=== PATIENT | female | born 1970 | race Caucasian/White ===

== ENCOUNTER 2020-08-06 09:07 | Outpatient (REF) | payer MEDICAID, SELFPAY ==
[2020-08-06 14:07] LABS: Abs Immature Grans 0.03 10^3/uL (0.0-0.06); Absolute Basophil Count 0.02 10^3/uL (0.0-0.2); Absolute Eosinophil Count 0.14 10^3/uL (0.0-0.7); Absolute Lymphocyte Count 2.34 10^3/uL (1.2-3.4); Absolute Monocyte Count 0.53 10^3/uL (0.1-0.8); Absolute Neutrophil Count 6.35 10^3/uL (1.2-6.7); Basophils % 0.2; Eosinophils % 1.5; HCT 41.2 % (36.0-46.0); HGB 13.7 g/dL (11.2-15.7); Immature Grans % 0.3; Lymphocytes % 24.9; MCH 31.8 pg (27.0-33.0); MCHC 33.3 % (32.0-36.0); MCV 95.6 fL (80-95); MPV 10.4 fL (8.0-11.0); Monocytes % 5.6; Neutrophils % 67.5; Nucleated RBC 0 %; Platelet Count 363 10^3/uL (130-400); RBC 4.31 10^6/uL (3.93-5.22); RDW 12.7 % (11.7-14.6); RDW-SD 44.9 fL; WBC 9.41 10^3/uL (4.4-10.8)
[2020-08-06 15:00] LABS: ALT 51 U/L (14-59); AST 22 U/L (15-37); Albumin 3.5 g/dL (3.4-5.0); Alkaline Phosphatase 93 U/L (46-116); Anion Gap 9.7 mmol/L (3-11); BUN 18 mg/dL (7-18); Bilirubin, Total 0.4 mg/dL (0.2-1.0); CO2 26.3 mmol/L (21.0-32.0); CREATININE 0.6 mg/dL (0.55-1.02); Calcium 9.2 mg/dL (8.5-10.1); Calculated LDL 184 mg/dL (<100); Chloride 106 mmol/L (98-107); Cholesterol 258 mg/dL (<200); Glucose 104 mg/dL (74-106); HDL Cholesterol 51 mg/dL (40-60); Potassium 4.2 mmol/L (3.5-5.1); Sodium 142 mmol/L (136-145); TSH 1.35 uIU/mL (0.36-3.74); Total Protein 6.8 g/dL (6.4-8.2); Triglyceride 115 mg/dL (<150)
[2020-08-06 16:46] LABS: Hemoglobin A1C 6.4 % (<5.7)
[2020-08-09 04:48] LABS: Vitamin D 25 Total 17.3 ng/mL (30-100)
== END 2020-08-06 09:08 | disposition home or self-care (01) ==
LOC: NCHCN 09:07
PROVIDERS: PCP Family Medicine; Visit Provider Registered Nurse
DX: M79.89 Other specified soft tissue disorders (principal); R22.41 Localized swelling, mass and lump, right lower limb; R22.42 Localized swelling, mass and lump, left lower limb; R06.02 Shortness of breath; R53.83 Other fatigue; E66.01 Morbid (severe) obesity due to excess calories; E55.9 Vitamin D deficiency, unspecified; R73.09 Other abnormal glucose
CPT/HCPCS: 80053; 80061; 82306; 83036; 84443; 85025

== ENCOUNTER 2021-01-24 20:08 | Emergency (ER) | payer MEDICAID, SELFPAY ==
[2021-01-24] VITALS (20 sets, daily range): BP systolic 131–187; BP diastolic 81–148; PULSE 67–85; RESP 18–28; TEMP 36.5; O2SAT 93–97
--- NOTE | 2021-01-24 20:33 | W.ED.GENAD ---
Discharge Plan Disposition Patient Disposition: HOME Condition: Stable Discharge Details Clinical Impression: COVID-19 Primary Care Provider: Indu Glover ED Provider: Veronica Sandoval Home Meds and New Rx's Prescriptions: No Action No Known Home Meds RF: 0 Discharge Instructions Instructions: COVID-19 (Coronavirus Disease 2019) (ED) Additional Instructions: Your chest x-ray, EKG and labs are all reassuring here today. No evidence to suggest blood clot in your lungs, emergent cardiac pathology, pneumonia. Please continue to encourage hydration. You may use Tylenol and ibuprofen as needed for discomfort. Please reach out tomorrow to schedule outpatient antibody infusion. You may call your primary care or hospital at [phone]. If you develop increased shortness of breath, difficulty breathing or other new/worsening symptoms please seek care urgently once again. Pleae check your O2 as we discussed and return if O2 is less than 90%. Referrals: Indu Glover [Primary Care Provider] - Medical Decision Making Patient is a pleasant 51-year-old female presents today with chief complaint of hypoxia in setting of COVID-19. She reports that she became symptomatic and was diagnosed Covid +3 days ago. She states that she is fully vaccinated, likely contracted this appears to me that her works. States that her symptoms have included slight cough, sore throat, loss of sense of smell. Yesterday she began developing some chest pressure. No shortness of breath but states that she feels like I have to take a deep breath. Denies any abdominal upset, no abdominal discomfort or diarrhea. Was given a home oxygen probe by her primary care. States this this has been reading in the mid 80s today. She denies any increased shortness of breath. Has had continued chest pressure. States that she would not of come in if the oxygen reading had not been low. On exam, patient appears nontoxic. Patient is overweight. Lungs are clear, normal cardiac exam. No lower extremity edema. Oxygen 95 to 97% on room air. Patient did not exhibit any dyspnea when walking in. She is hypertensive at this visit she does have a history of hypertension and feeling very anxious. Patient I discussed diagnostic and treatment options. She has had some chest pressure, I do feel that EKG and troponin would be appropriate. As it began yesterday, I believe 1 - test to be sufficient. Will obtain a portable chest x-ray. She is Covid positive, also considered potential PE and will obtain D-dimer. Labs reviewed. No leukocytosis. Stable H&H. D-dimer within normal limits. CMP without significant abnormality. ALT is slightly elevated at 78, she has been elevated historically. Her troponin within normal limits. FINDINGS: Lungs: Evaluation of the lungs is limited by underinflation. Within this limitation, no pulmonary infiltrates or consolidations are identified. Pleural spaces: No significant pleural effusions. No pneumothorax. Heart/Mediastinum: Cardiomediastinal silhouette is unremarkable. Bones/joints: No acute osseous abnormalities. IMPRESSION: No acute findings, within limitation of low lung volumes. Impression. Discussed findings with the patient. We did discuss how to use the pulse oximeter more appropriately. I am questioning if she may have been using this and not giving it time to read. She has already discussed antibody infusion with her primary care and was advised to been contacted today. Advised if she does not hear from them in the morning she should reach out as likely they will be doing this in the next 24 to 48 hours. Return precautions were discussed. She will continue to quarantine. All of her questions and concerns were addressed and she is in agreement this plan. HPI General Mode of arrival: ambulatory. Date/Time Provider Initiated Documentation: 01/24/21 20:14. Limitations to Documentation: no limitations. Information obtained by: patient and RN notes reviewed. History of Present Illness 51 year old F presents to the emergency department with the chief complaint of chest pressure, low O2 at hoome, described as moderate, with intensity rated at 5. Quality is described as other (pressure), and is localized to the chest. Patient reports no radiation. Patient started experiencing this day(s) (covid sxs x 3 days, CP started yesterday) and it has been constant. No relieving factors improve symptom(s), No exacerbating factors reported . Patient notes chest pain, cough, fever/chills (t max 99.7) and shortness of breath (feels that she needs to take a deep breath); denies headaches, loss of appetite, nausea/vomiting and rash. Patient did receive the following treatments prior to arrival, none Related Data Home Medications Medication Instructions Recorded Confirmed Unknown [No Known Home Meds] 01/24/21 01/24/21 Allergies Allergy/AdvReac Type Severity Reaction Status Date / Time No Known Drug Allergies Allergy Unverified 01/24/21 20:24 General Stated Complaint: RespSymp LUPIS: 2 Review of Systems Constitutional Constitutional: Reports as per HPI, Denies chills, Reports fatigue, Reports fever(s), Denies headache(s), Reports lethargy and Reports malaise ENT Ears, Nose, Mouth, and Throat: Denies dizziness, Denies headache(s), Denies nasal congestion, Reports sore throat and Reports other (loss of sense of taste) Cardiovascular Cardiovascular: Reports as per HPI, Reports chest pain (pressure, started yesterday), Reports chest pain at rest and Reports dyspnea Respiratory Respiratory: Reports as per HPI, Denies chest congestion, Reports cough, Denies pain on inspiration, Denies pain with cough, Reports dyspnea and Denies wheezing Gastrointestinal Gastrointestinal: Reports as per HPI, Denies abdominal pain, Reports diarrhea (one loose BM this afternoon) and Denies vomiting Musculoskeletal Musculoskeletal: Reports as per HPI and Reports myalgias Integumentary/Breasts Skin/Breast: Reports as per HPI and Denies rash Neurologic Neurologic: Reports as per HPI, Denies dizziness and Denies headache(s) Endocrine Endocrine: Reports fatigue Allergic/Immunologic Allergic/Immunologic: Denies wheezing [facility] Active Problem List (Updated 01/24/21 @ 22:20 by SENIA Hendrix) COVID-19 (Acute) Medical History (Updated 01/24/21 @ 22:20 by SENIA Hendrix) Hypertension Pre-diabetes Social History Smoking/Tobacco Use Status: Never Smoking risk assessment performed?: Yes Alcohol Intake: current Alcohol Intake frequency: a few times a week Alcohol type: hard liquor Drug use: Occasionally Substance use type: marijuana Do you feel safe at home: Yes Do you feel safe in your relationship?: Yes Exam Const General: cooperative, healthy appearing, comfortable, no acute distress and well developed Nutritional Appearance: well nourished and obese Orientation: alert, awake and oriented x3 HENMT Head: normal to inspection Ears: hearing grossly normal bilaterally Mouth: moist mucous membranes Chest Chest: normal inspection of the chest, normal palpation of entire chest wall and no crepitus Resp Effort & Inspection: normal respiratory effort, able to speak in complete sentences and no respiratory distress Auscultation: clear to auscultation bilaterally, no rales, no rhonchi and no wheezes Cardio Rate: regular rate Rhythm: regular rhythm Heart Sounds: S1 normal and S2 normal GI Inspection: normal to inspection, no edema and non-distended Palpation: soft, no hepatosplenomegaly, not firm, no guarding, not rigid and nontender Auscultation: normal bowel sounds Skin General skin exam: no rashes or lesions noted Trauma: no lacerations or abrasions Neuro General: patient alert, patient awake and patient oriented x3 Cognition: normal cognition Speech: speech normal Gait: normal gait Extrem General: normal to inspection, capillary refill normal, no pedal edema, no calf tenderness and normal gait Psych Appearance: grossly normal and well kempt Mental Status: mental status grossly normal Speech and Movement: speech and movement normal Course Vital Signs Vital signs: Vital Signs Temperature 36.5 C 01/24/21 20:17 Pulse 81 01/24/21 20:17 Respiratory Rate 18 01/24/21 20:17 Blood Pressure 187/90 H 01/24/21 20:17 Pulse Oximetry 95 01/24/21 20:17 Temperature 36.5 C 01/24/21 20:17 Temperature Source Oral 01/24/21 20:17 Pulse 81 01/24/21 20:17 Respiratory Rate 18 01/24/21 20:17 Respiratory Effort Non-Labored 01/24/21 20:31 Respiratory Depth Normal 01/24/21 20:31 Blood Pressure 187/90 H 01/24/21 20:17 Blood Pressure Position Sitting 01/24/21 20:17 Pulse Oximetry 95 01/24/21 20:17 Oxygen Delivery Method Room Air 01/24/21 20:17 Oxygen Flow Rate 0 01/24/21 20:17 Pain Level 6 01/24/21 20:17
--- NOTE | 2021-01-24 20:45 | RT.EKG_ITS ---
APPROVED REPORT Exam: Resting ECG Reason for Exam: chest pressure Patient Location: E HR:68 bpm ECG Measurements Heart Rate 68 AXIS MD 171 P 43 QRSd 105 QRS 0 QT 398 T -5 QTc 423 Conclusion Sinus rhythm...normal P axis, V-rate 60- 99 Low voltage, precordial leads...precordial leads <1.0mV
--- NOTE | 2021-01-24 20:45 | DI.RAD_ITS ---
Exam(s) XR PORTABLE CHEST AP EXAM: XR PORTABLE CHEST AP CLINICAL HISTORY: chest pressure TECHNIQUE: 2D digital imaging was performed of the chest. One image was obtained. An AP view was ob tained. COMPARISON: No exams were available for comparison FINDINGS: MEDIASTINUM: Normal. HEART: Normal. PULMONARY VASCULATURE: Normal. LUNGS: Clear. PLEURAL SPACE: No pleural effusion or pneumothorax. BONE:Within normal limits for the patient's age. OTHER FINDINGS:Normal. IMPRESSION: No acute pulmonary findings. DATA REPOSITORY: RADIATION DOSE DELIVERED:
--- NOTE | 2021-01-24 21:35 | DI.VRAD_ITS ---
PROCEDURE INFORMATION: Exam: XR Chest Exam date and time: 01/24/2021 8:54 PM Age: 51 years old Clinical indication: Pain; Chest pressure TECHNIQUE: Imaging protocol: XR of the chest. Views: 1 view. COMPARISON: No relevant prior studies available. FINDINGS: Lungs: Evaluation of the lungs is limited by underinflation. Within this limitation, no pulmonary infiltrates or consolidations are identified. Pleural spaces: No significant pleural effusions. No pneumothorax. Heart/Mediastinum: Cardiomediastinal silhouette is unremarkable. Bones/joints: No acute osseous abnormalities. IMPRESSION: No acute findings, within limitation of low lung volumes. Impression. Dictated and Authenticated by: Schuyler Herrera MD. Ordering:TAIWO Martin MD
[2021-01-24 21:42] LABS: Abs Immature Grans 0.02 10^3/uL (0.0-0.06); Absolute Basophil Count 0.01 10^3/uL (0.0-0.2); Absolute Eosinophil Count 0.13 10^3/uL (0.0-0.7); Absolute Lymphocyte Count 2.13 10^3/uL (1.2-3.4); Absolute Monocyte Count 0.55 10^3/uL (0.1-0.8); Absolute Neutrophil Count 3.57 10^3/uL (1.2-6.7); Basophils % 0.2; HCT 41.1 % (36.0-46.0); HGB 13.7 g/dL (11.2-15.7); Immature Grans % 0.3; Lymphocytes % 33.2; MCH 32.3 pg (27.0-33.0); MCHC 33.3 % (32.0-36.0); MCV 96.9 fL (80-95); Monocytes % 8.6; Neutrophils % 55.7; Nucleated RBC 0 %; Platelet Count 310 10^3/uL (130-400); RBC 4.24 10^6/uL (3.93-5.22); RDW 12.7 % (11.7-14.6); RDW-SD 45.4 fL; WBC 6.41 10^3/uL (4.4-10.8)
[2021-01-24 22:02] LABS: ALT 78 U/L (14-59); AST 37 U/L (15-37); Albumin 3.4 g/dL (3.4-5.0); Alkaline Phosphatase 89 U/L (46-116); Anion Gap 9.3 mmol/L (3-11); BUN 16 mg/dL (7-18); Bilirubin, Total 0.2 mg/dL (0.2-1.0); CO2 25.7 mmol/L (21.0-32.0); Calcium 8.4 mg/dL (8.5-10.1); Chloride 106 mmol/L (98-107); Estimated GFR 58.45 (mL/min/1.73m2); Glucose 162 mg/dL (74-106); Magnesium 1.9 mg/dL (1.8-2.4); Potassium 3.5 mmol/L (3.5-5.1); Sodium 141 mmol/L (136-145)
[2021-01-24 22:05] LABS: Troponin I < 0.05 ng/mL (<0.06)
[2021-01-24 22:13] LABS: D-Dimer 464 ng/mlFEU (<500)
== END 2021-01-24 22:25 | disposition home or self-care (01) ==
PROVIDERS: Emergency Provider Physician Assistant; PCP Family Medicine
DX: U07.1 COVID-19 (principal); R07.89 Other chest pain
CPT/HCPCS: 36415; 80053; 93005; 99284; 71045; 83735; 84484; 85025; 85379; 93010

== ENCOUNTER 2021-01-26 01:22 | Outpatient (CLI) | payer MEDICAID, SELFPAY ==
[2021-01-26 13:25] VITALS: BP 131/85; PULSE 73; TEMP 36.6; O2SAT 95
[2021-01-26 13:55] VITALS: BP 133/86; PULSE 66; TEMP 37.3; O2SAT 95
[2021-01-26 14:20] VITALS: BP 125/85; PULSE 67; TEMP 36.9; O2SAT 97
[2021-01-26 14:50] VITALS: BP 129/82; PULSE 68; TEMP 36.9; O2SAT 95
[2021-01-26 15:20] VITALS: BP 131/84; PULSE 66; TEMP 37.3; O2SAT 96
== END 2021-01-26 01:23 | disposition home or self-care (01) ==
PROVIDERS: PCP Family Medicine; Visit Provider Family Medicine
DX: U07.1 COVID-19 (principal)
CPT/HCPCS: 96365

== ENCOUNTER 2021-03-10 08:49 | Outpatient (REF) | payer MEDICAID, SELFPAY ==
--- NOTE | 2021-03-10 08:20 | PAPFT_PTH ---
PATIENT: Patricia Hanley LOC: [facility]#:[id number] AGE/SX: 51/F ROOM: RE03/10/[address]: Norma Kennedy : 1970 BED: DIS: 03/10/2021 SPEC #: [id number] RECD: 03/10/21 17:35 STATUS: ABENA REQ #: [id number] LUI: 03/10/21 08:[address]: Norma Kennedy DEPT: [facility] Cytology RECD BY: Vicki Whitfield ENTERED: 03/10/21 17:35 SP TYPE: PAPFT OTHR DR: Indu Glover Tissues: 1 - CX/ENDOCX FOR PAP SMEARS Procedures: PAP THIN PREP/UVM Screening HPV DNA PROBE Comments: [id number]
== END 2021-03-10 08:50 | disposition home or self-care (01) ==
LOC: NCHCN 08:49
PROVIDERS: PCP Family Medicine; Visit Provider Registered Nurse
DX: Z12.4 Encounter for screening for malignant neoplasm of cervix (principal); Z11.51 Encounter for screening for human papillomavirus (HPV)
CPT/HCPCS: 88142; 87624

== ENCOUNTER 2021-07-04 18:42 | Outpatient (REF) | payer MEDICAID, SELFPAY | END 2021-07-04 18:43 | disposition home or self-care (01) | LOC: NCHCN 18:42 | PROVIDERS: PCP Family Medicine; Visit Provider Internal Medicine | DX: R30.0 Dysuria (principal) | CPT/HCPCS: 87086 ==

== ENCOUNTER 2021-10-19 14:25 | Outpatient (REF) | payer MEDICAID, SELFPAY ==
[2021-10-20 10:41] LABS: HGB 13.9 g/dL (11.2-15.7); MCH 32.5 pg (27.0-33.0); MCHC 33.9 % (32.0-36.0); MCV 96 fL (80-95); Platelet Count 383 10^3/uL (130-400); RBC 4.28 10^6/uL (3.93-5.22); RDW 12.6 % (11.7-14.6); RDW-SD 44.5 fL; WBC 12.23 10^3/uL (4.4-10.8)
[2021-10-20 11:15] LABS: ALT 91 U/L (14-59); AST 46 U/L (15-37); Albumin 3.6 g/dL (3.4-5.0); Alkaline Phosphatase 81 U/L (46-116); Anion Gap 8.9 mmol/L (3-11); BUN 12 mg/dL (7-18); Bilirubin, Total 0.5 mg/dL (0.2-1.0); CO2 26.1 mmol/L (21.0-32.0); CREATININE 0.9 mg/dL (0.55-1.02); Calcium 8.8 mg/dL (8.5-10.1); Chloride 105 mmol/L (98-107); Glucose 128 mg/dL (74-106); Potassium 3.6 mmol/L (3.5-5.1); Sodium 140 mmol/L (136-145); Total Protein 7.4 g/dL (6.4-8.2)
== END 2021-10-19 14:26 | disposition home or self-care (01) ==
LOC: NCHCN 14:25
PROVIDERS: PCP Family Medicine; Visit Provider Family Medicine
DX: I10 Essential (primary) hypertension (principal); R53.83 Other fatigue; R06.09 Other forms of dyspnea; R39.9 Unspecified symptoms and signs involving the genitourinary system
CPT/HCPCS: 80053; 85027; 87086

== ENCOUNTER 2021-10-26 14:36 | Outpatient (REF) | payer MEDICAID, SELFPAY ==
[2021-10-26 21:24] LABS: Bilirubin Negative (Negative); Blood Negative (Negative); Clarity Clear (Clear); Glucose Negative (Negative); Ketones Negative (Negative); Leukocyte Esterase Negative (Negative); Nitrite Negative (Negative); Urobilinogen 0.2 EU/dL (Up TO 0.2)
== END 2021-10-26 14:37 | disposition home or self-care (01) ==
LOC: NCHCN 14:36
PROVIDERS: PCP Family Medicine; Visit Provider Family Medicine
DX: R31.0 Gross hematuria (principal)
CPT/HCPCS: 81003

== ENCOUNTER 2022-02-16 15:13 | Outpatient (REF) | payer MEDICAID, SELFPAY ==
[2022-02-16 15:59] LABS: Bilirubin Negative (Negative); Blood Trace-intact (Negative); Clarity Clear (Clear); Glucose Negative (Negative); Ketones Negative (Negative); Leukocyte Esterase Negative (Negative); Nitrite Negative (Negative); Specific Gravity 1.025 (1.005-1.025); Urobilinogen 0.2 EU/dL (Up TO 0.2); pH 6.5 (5-8)
[2022-02-16 16:10] LABS: Bacteria Negative HPF (Negative); C & S Indicated? No; Casts Negative LPF (Negative); Crystals Negative HPF (Negative); Epithelial Cells Few HPF (Negative); Mucus Negative (Negative); RBC 0-2 HPF (0-2); WBC Negative HPF (0-5)
== END 2022-02-16 15:14 | disposition home or self-care (01) ==
LOC: LBN 15:13
PROVIDERS: PCP Family Medicine; Visit Provider Nurse Practitioner Gerontology
DX: C67.9 Malignant neoplasm of bladder, unspecified (principal); R31.9 Hematuria, unspecified
CPT/HCPCS: 81003; 81015

== ENCOUNTER 2022-03-13 07:24 | Day surgery (SDC) | payer MEDICAID, SELFPAY ==
[2022-03-13 07:42] VITALS: BP 150/88; PULSE 73; RESP 18; TEMP 36.5; O2SAT 96
[2022-03-13] MEDS: Lactated Ringers 1,000 ML 80 ML IV (08:15)
--- NOTE | 2022-03-13 08:19 | W.ANESPRE ---
General Info Date of Service Date Performed: 03/13/22 Height: 5 ft 6 in Weight: 129.4 kg Body Mass Index (BMI): 46.0 Surgical Procedure: Operation Date: 03/13/22 09:10 Proposed Procedure Side Surgeon p Cystoscopy/Retrograde Bilateral Kishore Collins MD Meds Allergies and Home Medications Allergies Allergy/AdvReac Type Severity Reaction Status Date / Time No Known Drug Allergies Allergy Unverified 03/13/22 07:41 Home Medication Medication Instructions Recorded levonorgestrel 20 mcg/24 hours (8 1 device intrauterine ONCE 12/15/21 yrs) 52 mg intrauterine device (Mirena) Current Visit Medications: Current Medications Generic Name Dose Route Start Last Admin Trade Name Freq PRN Reason Stop Dose Admin Ringer's Solution 1,000 mls @ 80 mls/hr 03/13/22 06:00 03/13/22 08:15 IV 03/13/22 23:59 80 mls/hr INFUSION LINDA Administration Cefazolin Sodium/Dextrose 2 gm in 50 mls @ 100 mls/hr 03/13/22 06:00 Ancef Duplex IVPB 03/13/22 23:59 PREOP LINDA IV Miscellaneous Supplies 1 each 03/13/22 06:00 Iv Access IV 03/13/22 23:59 DIRECTED LINDA Sodium Chloride 0 ml 03/13/22 06:00 Normal Saline Flush 10 Ml Syr IV 03/13/22 23:59 PRN PRN Sodium Chloride 0 ml 03/13/22 06:00 Normal Saline 10 Ml Vial IJ 03/13/22 23:59 DIRECTED PRN Sterile Water 0 ml 03/13/22 06:00 Water,Injection,Sterile 10 Ml Vial IJ 03/13/22 23:59 DIRECTED PRN PFSH Active Problems Active Problems: Problem Status Onset Code COVID-19 U07.1 Basal cell carcinoma C44.91 Foot pain, right M79.671 Shoulder pain, left M25.512 Abdominal pain R10.9 Hematuria R31.9 CTS (carpal tunnel syndrome) G56.00 Severe obesity E66.01 HLD (hyperlipidemia) E78.5 LEW (dyspnea on exertion) R06.09 Localized swelling of both lower legs R22.43 Fatigue R53.83 SOB (shortness of breath) R06.02 Stress F43.9 Concussion S06.0XAA IUD (intrauterine device) in place Z97.5 Diverticulitis K57.92 Medical History Medical History (Updated 03/13/22 @ 08:56 by Kishore Collins MD) Hypertension Pre-diabetes Surgical History Surgical History (Updated 03/13/22 @ 07:40 by Dianna Voss RN) History of cholecystectomy Tobacco Smoking/Tobacco Use Status: Never Alcohol Alcohol Intake: current Alcohol intake frequency: a few times a week Alcohol type: hard liquor Substance Use Substance use: Occasionally Substance use type: marijuana Vital Signs and Lab Results Vital Signs Most Recent Vital Signs in EMR: Most Recent Vital Signs Temp Pulse Resp BP Pulse Ox 36.5 C 73 18 150/88 H 96 03/13/22 07:42 03/13/22 07:42 03/13/22 07:42 03/13/22 07:42 03/13/22 07:42 Lab Results Blood Type / Crossmatch: No Data to Display Complete Blood Count: No Data to Display Complete Metabolic Panel: No Data to Display Liver Function Panel: No Data to Display Coagulation Panel: No Data to Display Cardiac Panel: No Data to Display Arterial Blood Gas: No Data to Display Venous Blood Gas: No Data to Display Pancreas Panel: No Data to Display Thyroid Panel: No Data to Display Infectious Disease: No Data to Display Blood Cultures: No Data to Display Toxicology Panel: No Data to Display Panel: No Data to Display Imaging and Studies Imaging and Studies Study information below may be from another EMR and interpreted by another provider. Please see original notes in EMR for more complete details. EKG Summary: Conclusion Sinus rhythm...normal P axis, V-rate 60- 99 Low voltage, precordial leads...precordial leads <1.0mV 01/24/21 Anesthesia Assessment and Plan Anesthesia History Personal History: No History of Anesthesia Complications Family History: No Family History of Anesthesia Complications Exercise Tolerance Exercise Tolerance: Metabolic Equivalents>4 Pertinent Negatives Pertinent Negatives: No Symptoms of GERD, No Major Cardiovascular Symptoms or Complaints, No Major Pulmonary Symptoms or Complaints and No History of CVA/TIA Cardiac & Pulmonary Exam Cardiac Exam: Normal S1/S2 Heart Sounds Pulmonary Exam: Clear Bilateral Breath Sounds Implantable Cardiac Device Does patient have a Pacemaker or an ICD?: No Airway Exam Known Difficult Airway: No Mallampati Class: 3 Mouth Opening: Normal (> 3cm) Thyromental Distance: Greater than 3 cm Neck Range of Motion: Full ROM Neck Circumference: Thick Teeth Condition: Normal Dentition ASA Classification ASA Score: ASA 3 Emergency Case?: No NPO Status NPO Status: NPO Clears >2 hours, Solids >8 hours Status Status: Negative HCG Anesthesia Plan Resuscitation Status: Full Code Anesthesia Technique: General Anesthesia Airway Planned: Natural Airway Monitors Used: Standard Monitors
--- NOTE | 2022-03-13 08:52 | W.PM.HP.N ---
Date of service: 03/13/22 Time of Service: 08:52 Assessment and Plan Assessment and plan (1) Hematuria: Status: Acute (2) Hydronephrosis, right: Status: Acute Assessment and plan: For cystoscopy and retrograde pyelogram. Based on our findings, we may take a biopsy of the bladder. We may do ureteroscopy or place a ureteral stent with a staged ureteroscopy based on the findings on the retrograde pyelogram. History of Present Illness History of Present Illness Chief Complaint: Hematuria Narrative: This is a 52-year-old woman who was evaluated at an outside hospital for gross hematuria. She underwent a renal ultrasound which showed right-sided hydronephrosis. She had an office cystoscopy which revealed a papillary lesion near the right ureteral orifice. The area was biopsied in the operating room but no malignancy was identified. She then sought another opinion from us. In reviewing her chart it does not look like there was any imaging done of her ureters. She has had right flank pain. Over the past week or two, she has had left flank pain. She has no history of kidney stones or prior urologic surgery. She presents for cystoscopy, retrograde pyelogram and possible repeat biopsy of her bladder. If hydronephrosis is still identified, we may need to place a ureteral stent and perform ureteroscopy either now or as a staged procedure She has not seen any gross hematuria recently. Review of Systems Narrative: No fevers or chills No vision change or dysphasia No diabetes or thyroid dysfunction No cough or hemoptysis No chest pain or palpitations No nausea, vomiting, hepatitis, ulcers, jaundice No seizures, strokes or peripheral neuropathy No bleeding disorders or anemia c/o arthralgia. No gout PFSH All Active Problems (Updated 03/13/22 @ 08:56 by Kishore Collins MD) Hydronephrosis, right (Acute) COVID-19 (Acute) Basal cell carcinoma (Acute) Foot pain, right (Acute) Shoulder pain, left (Acute) Abdominal pain (Acute) Hematuria (Acute) CTS (carpal tunnel syndrome) (Acute) Severe obesity (Acute) HLD (hyperlipidemia) (Acute) LEW (dyspnea on exertion) (Acute) Localized swelling of both lower legs (Acute) Fatigue (Acute) SOB (shortness of breath) (Acute) Stress (Acute) Concussion (Acute) IUD (intrauterine device) in place (Acute) Diverticulitis (Chronic) Medical History (Updated 03/13/22 @ 08:56 by Kishore Collins MD) Hypertension Pre-diabetes Surgical History (Updated 03/13/22 @ 07:40 by Dianna Voss RN) History of cholecystectomy Social History Smoking/Tobacco Use Status: Never Smoking risk assessment performed?: Yes Alcohol Intake: current Alcohol Intake frequency: a few times a week Alcohol type: hard liquor Drug use: Occasionally Substance use type: marijuana Do you feel safe at home: Yes Do you feel safe in your relationship?: Yes Meds Allergies and Home Medications Allergies Allergy/AdvReac Type Severity Reaction Status Date / Time No Known Drug Allergies Allergy Unverified 03/13/22 07:41 Home Medications Medication Instructions Recorded Confirmed Type levonorgestrel 20 mcg/24 hours (8 1 device intrauterine ONCE 12/15/21 03/13/22 History yrs) 52 mg intrauterine device (Mirena) Exam Const General: cooperative Nutritional Appearance: obese Neck Neck: supple Resp Effort & Inspection: normal respiratory effort Auscultation: clear to auscultation bilaterally Cardio Rate: regular rate Rhythm: regular rhythm GI Palpation: soft and no masses Neuro General: patient alert, patient awake and patient oriented x3 Results Last Vital Signs Temp 36.5 C 03/13/22 07:42 Pulse 73 03/13/22 07:42 Resp 18 03/13/22 07:42 BP 150/88 H 03/13/22 07:42 Pulse Ox 96 03/13/22 07:42 Time Spent Time spent with Patient: <40 minutes Time was spent: obtaining and/or reviewing separately otained hiistory and counseling the patient
[2022-03-13 09:05] VITALS: BMI 46.0
[2022-03-13] MEDS: ceFAZolin 2 GM/50 ML BAG IVPB (09:21)
[2022-03-13] MEDS: Lidocaine 2% Jelly 6 ML SYR (09:41)
[2022-03-13] MEDS: Omnipaque 300 MG/ML 50 ML BTL (09:41)
--- NOTE | 2022-03-13 09:47 | W.PM.DSUDISC ---
Date of service: 03/13/22 Time of Service: 09:47 Discharge Plan Disposition Patient Disposition: Home Condition: Good Discharge Details Reason For Visit: hematuria Attending Provider: Kishore Collins Primary Care Provider: Indu Glover Home Meds and New Rx's Prescriptions: No Action Mirena 20 mcg/24 hours (7 yrs) 52 mg intrauterine device 1 device intrauterine ONCE Rx Instructions: as a single dose Discharge Instructions Additional Instructions: followup yearly for urinalysis - sooner if notices visible blood or worsening flank pain Activity:: Activity as Tolerated Shower/Bathe:: 24 hours Diet:: As Tolerated Discharge Orders Discharge Orders: Discharge Order (Routine); Ordered 03/13/22 Ordered By: Kishore Collins DS: Diagnosis Discharge Diagnosis (1) Hematuria: Status: Acute (2) Hydronephrosis, right: Status: Acute
--- NOTE | 2022-03-13 09:49 | ROE_ITS ---
Date of service: 03/13/22 Time of Service: 09:49 Operative Note Operative Note DATE OF PROCEDURE: 03/13/22 PRE-OP DIAGNOSIS: Hematuria POST-OP DIAGNOSIS: same PROCEDURE: cystoscopy, bilateral retrograde pyelogram SURGEON: Kishore Collins ANESTHESIA TYPE: General:No Airway Refer to Anesthesia Record ESTIMATED BLOOD LOSS: 3 PATHOLOGY: none sent COMPLICATIONS: None Patient was transported to: same day Patient's condition: stable Implants: none Indications: This is a 52-year-old woman who initially presented with gross hematuria. She was evaluated at an outside facility. She had a renal ultrasound which described right-sided hydronephrosis. She had an office cystoscopy and a lesion adjacent to the right ureteral orifice was identified. She had the area biopsied, but no malignancy was identified. She then came in to see us for another opinion. She continued to have some right sided back pain and now has left-sided pain. She has not seen any gross hematuria. She presents now for cystoscopy and retrograde pyelogram Findings: No ureteral obstruction or hydronephrosis No papillary or nodular lesions in the bladder Procedure Description: The patient was given preoperative IV antibiotics. She is brought to the operating room on 03/13/2022. After successful induction of general anesthesia without intubation, she is placed in the dorsal lithotomy position. Her genitalia is prepped and draped. 2% Xylocaine jelly was instilled into the urethra to act as a local anesthetic. I then passed a 22 Cam[place]onian rigid cystoscope through the urethra into the bladder. The bladder was inspected with a 30 degree lens. The left ureteral orifice appeared normal. No blood was seen coming from the left side. The right ureteral orifice appeared a bit more narrow but no blood was seen coming from the right side either. No papillary or nodular lesions were identified adjacent to the right ureteral orifice. Each orifice was then cannulated with a 6 Cam[place]onian access catheter and a retrograde film was obtained by injecting Omnipaque through the access catheter under fluoroscopic guidance. Both ureters appeared open with no stenosis. The collecting systems appeared normal. Both sides drained promptly on a 5-minute drainage film. The remainder the bladder was reinspected with a 70 degree lens. Again, no papillary or nodular lesions were identified. The bladder was emptied and the cystoscope was withdrawn.
[2022-03-13 09:52] VITALS: BP 106/65; PULSE 67; RESP 18; TEMP 36.2; O2SAT 93
[2022-03-13 10:07] VITALS: BP 108/68; PULSE 78; RESP 18; TEMP 36.8; O2SAT 94
--- NOTE | 2022-03-13 10:10 | DI.RAD_ITS ---
Exam(s) XR RETROGRADE IN OR EXAM: XR RETROGRADE IN OR CLINICAL HISTORY: HEMATURIA TECHNIQUE: 2D and realtime digital imaging was performed. CONTRAST MATERIAL: Refer to procedure report. COMPARISON: No exams were available for comparison FINDINGS: Fluoroscopy was provided for Dr. Collins during the performance of a retrograde evaluation of the manjeet l collecting system. Please refer to the procedure report for complete details. Ka,r=11.6 mGy IMPRESSION: RADIATION DOSE DELIVERED:
--- NOTE | 2022-03-13 10:20 | W.ANESPOSTOP ---
Postoperative Evaluation Date, Time and Location Date Performed: 03/13/22 Time Performed: 10:14 Patient Location: Day Surgery Unit Vital Signs Most Recent Imported Vital Signs: Most Recent Vital Signs Temp Pulse Resp BP Pulse Ox 36.8 C 78 18 108/68 94 03/13/22 10:07 03/13/22 10:07 03/13/22 10:07 03/13/22 10:07 03/13/22 10:07 Pain Score Most Recent Pain Score: Most Recent Pain Score Pain Level 0 03/13/22 10:07 Assessment Mental Status: Awake (Alert & Oriented to Patient Baseline) Airway and Respiratory Function: Patent airway with normal (patient baseline) respiratory exam Cardiovascular Function: Hemodynamically Stable Hydration Status: Adequately Hydrated Nausea & Vomiting: No Nausea or Vomiting Pain: Other (Some throat discomfort, i explained that she awoke coughing, most likey rlated to her marijuana smokinig daily. ) Peripheral Nerve Block: Patient did not receive a nerve block
[2022-03-13 10:30] VITALS: BP 118/70; PULSE 78; RESP 18; TEMP 36.8; O2SAT 96
[2022-03-13] MEDS: Phenazopyridine 200 MG TAB PO (10:31)
== END 2022-03-13 11:08 | disposition home or self-care (01) ==
PROVIDERS: PCP Family Medicine; Visit Provider Urology
PROC: (CPT 74450; principal; 2022-03-13 09:00)
DX: R31.0 Gross hematuria (principal); N13.30 Unspecified hydronephrosis
CPT/HCPCS: 52005; 81025; 74420; J0690; J1100; J1885; J2405; J2704; Q9967

== ENCOUNTER 2022-08-02 16:29 | Outpatient (REF) | payer MEDICAID, SELFPAY ==
[2022-08-02 22:02] LABS: Hemoglobin A1C 6.1 % (<5.7)
[2022-08-02 22:06] LABS: ALT 69 U/L (14-59); AST 35 U/L (15-37); Albumin 3.5 g/dL (3.4-5.0); Alkaline Phosphatase 79 U/L (46-116); Anion Gap 7.2 mmol/L (3-11); BUN 16 mg/dL (7-18); Bilirubin, Total 0.3 mg/dL (0.2-1.0); CO2 26.8 mmol/L (21.0-32.0); Calcium 8.5 mg/dL (8.5-10.1); Calculated LDL 173 mg/dL (<100); Chloride 105 mmol/L (98-107); Cholesterol 264 mg/dL (<200); Estimated GFR 67.78 (mL/min/1.73m2); Glucose 127 mg/dL (74-106); HDL Cholesterol 51 mg/dL (40-60); Potassium 3.9 mmol/L (3.5-5.1); Sodium 139 mmol/L (136-145); Total Protein 7.1 g/dL (6.4-8.2); Triglyceride 203 mg/dL (<150)
== END 2022-08-02 16:30 | disposition home or self-care (01) ==
LOC: NCHCN 16:29
PROVIDERS: PCP Family Medicine; Visit Provider Registered Nurse
DX: I10 Essential (primary) hypertension (principal); E78.5 Hyperlipidemia, unspecified; R73.03 Prediabetes
CPT/HCPCS: 80053; 80061; 83036

== ENCOUNTER → 2023-03-27 00:48 | Outpatient (CLI) | payer MEDICAID, SELFPAY ==
--- NOTE | 2023-03-27 07:00 | DI.US_ITS ---
Exam(s) US PELVIS TRANSVAGINAL EXAM: US PELVIS TRANSVAGINAL CLINICAL HISTORY: anatomy, check IUD,ABD CRAMPING,R10.9,Z97.5. TECHNIQUE: Transabdominal and transvaginal pelvic ultrasound was performed using standard protocol. COMPARISON: No exams were available for comparison FINDINGS: UTERUS: Suboptimal visualization of the endometrium in the IUD. Position: Anteverted. Size: 8.0 long by 3.9 AP by 4.5 transverse cm Endometrium: 0.5 cm. The IUD is difficult to visualize but appears to be in good position, located in the endometrium in the fundus.. Myometrium: Unremarkable. Cervix: Nabothian cysts are present. OVARIES: The right ovary was visualized with difficulty. The left ovary was not definitively identif ied. Right: 2.1 x 2.0 x 2.9 cm Cyst or mass: No suspicious cystic or solid masses. CUL-DE-SAC: Free fluid: None. Other: None. IMPRESSION: 1. Examination was significantly limited. There is poor visualization of the endometrial stripe an I UD. The left ovary cannot be definitely identified. 2. The IUD appears to be in good position in the fundal endometrium. 3. The right ovary is unremarkable. 4. A repeat pelvic ultrasound may be considered for further evaluation. DATA REPOSITORY:
== END ==
PROVIDERS: PCP Family Medicine; Visit Provider Obstetrics & Gynecology
DX: R10.9 Unspecified abdominal pain (principal); Z97.5 Presence of (intrauterine) contraceptive device
CPT/HCPCS: 76830; 76856

== ENCOUNTER 2023-09-12 15:42 | Emergency (ER) | payer BC, SELFPAY ==
[2023-09-12] VITALS (7 sets, daily range): BP systolic 131–173; BP diastolic 59–90; PULSE 83–97; RESP 16–18; TEMP 36.8–37.2; O2SAT 88–97
--- NOTE | 2023-09-12 16:30 | DI.CT_ITS ---
Exam(s) CT ABDOMEN PELVIS W EXAM: CT ABDOMEN PELVIS W CLINICAL HISTORY: RLQ tenderness. TECHNIQUE: Imaging Protocol: Axial computed tomography images with coronal and sagittal reformatted images were created and reviewed CONTRAST MATERIAL: Intravenous: Omnipaque-350 100cc Oral: None COMPARISON: No exams were available for comparison FINDINGS: VISUALIZED LUNG BASES: No nodules nor pleural effusions evident. ABDOMEN: There is no ascites. LIVER: There are no focal hepatic lesions evident. No dilated intrahepatic ducts. GALLBLADDER/BILIARY: Gallbladder surgically absent. CBD is not dilated. PANCREAS: No evidence of pancreatic mass nor dilatation of the pancreatic duct. SPLEEN: Spleen is not enlarged. No obvious intrasplenic lesions. Splenic and portal veins are paten t. ADRENALS: There are no significant adrenal masses. KIDNEYS:There is a benign 2.7 cm cyst in the superior pole of the left kidney. Does not require furt her workup. No solid renal masses. No calculi nor hydronephrosis.. ABDOMINAL AORTA: Abdominal aorta is not enlarged. LYMPH NODES:There is no retroperitoneal nor paraaortic adenopathy. ABDOMINAL WALL: No evidence of significant anterior abdominal wall nor inguinal hernia. PELVIS: GI: No evidence of appendicitis.There is sigmoid diverticulosis and there is an area of wall thickeni ng and inflammatory changes in the mid sigmoid consistent with acute diverticulitis. No obvious absc ess evident at this time. LYMPH NODES: There is no intrapelvic nor inguinal adenopathy. REPRODUCTIVE: IUD in satisfactory position in the uterus. No abnormal adnexal masses. URINARY BLADDER: No calculi nor obvious masses evident. No gas in the urinary bladder. OSSEOUS: No fractures and no significant osseous lesions. IMPRESSION: 1. There is evidence of acute sigmoid diverticulitis. No obvious abscess seen at this time. Appropr iate follow-up recommended. 2. Other findings as above. RADIATION DOSE DELIVERED: Total DLP DATA REPOSITORY: All CT scans at this facility are submitted to the National Radiology Data Registry (NRDR) Dose Index Registry (DIR) with the [employer] (A[employer]). RADIATION OPTIMIZATION: All CT scans at this facility use at least one of these dose optimization te chniques: automated exposure control; mA and/or kV adjustment per patient size (includes targeted exa ms where dose is matched to clinical indication); or iterative reconstruction.
--- NOTE | 2023-09-12 18:38 | ED.GENADUL_ITS ---
Discharge Plan Disposition Patient Disposition: Home Condition: Stable Discharge Details Clinical Impression: Acute diverticulitis Primary Care Provider: Indu Glover ED Provider: Alejandro Pak Home Meds and New Rx's Prescriptions: New amoxicillin-pot clavulanate 875-125 mg tablet 1 tab PO BID 10 Days Qty: 20 0RF No Action Mirena 20 mcg/24 hours (7 yrs) 52 mg intrauterine device 1 device intrauterine ONCE Rx Instructions: as a single dose Discharge Instructions Instructions: Hydrocodone, Diverticulitis, Amoxicillin and Clavulanate, Ondansetron Additional Instructions: You were seen in the emergency department for your abdominal pain, the CT scan shows some diverticulitis which is a common infection of the intestine and usually this pain is on the left but no other right-sided abdominal emergent problem is seen on your CT, there is no evidence of infection or appendicitis in the right abdomen. He had markers that were negative for sepsis, he had a mild elevated white blood cell count which indicates infection. I am starting you on the antibiotic Augmentin to take as directed for diverticulitis, I sent you home with a small to go pack of hydrocodone as well as ondansetron for nausea. As we discussed, please return to the emergency department for worsening abdom inal pain, black or bloody diarrhea, fever, nausea, sweating, weakness. Referrals: Indu Glover [Primary Care Provider] - Discharge Data Discharge Date/Time-TO BE ENTERED AT DEPARTURE: 09/12/23 22:40 HPI General Date/Time Provider Initiated Documentation: 09/12/23 15:58 . HPI Narrative: 53 year-old female presents to ED today by POV/ambulating with a chief complaint of lower abdominal pain, mostly R sided, nausea, chills/feverish last night with onset yesterday- called PCP, referred here for question of appendicitis. Quality described as R lower abdominal pain, occasionally across to the left side, no radiation to active vomiting, endorses diarrhea, denies black/bloody stools, endorses nausea, feverish, denies chest pain, denies shortness of breath. Severity is described as severe. Palliating factors include nothing specific helping. Provoking factors include nothing specific. Events leading up to the incident/Associated Symptoms: Patient states has her appendix, history of cholecystectomy. Patient not anticoagulated. Related Data Home Medications ?Medication ?Instructions ?Recorded ?Confirmed levonorgestrel 21 mcg/24 hr (up to 1 device intrauterine ONCE 12/15/21 09/12/23 8 years) 52 mg intrauterine device (Mirena) amoxicillin 875 mg-potassium 1 tab PO BID 10 days #20 tabs 09/12/23 clavulanate 125 mg tablet Previous Rx's ?Medication ?Instructions ?Recorded amoxicillin 875 mg-potassium 1 tab PO BID 10 days #20 tabs 09/12/23 clavulanate 125 mg tablet Allergies Allergy/AdvReac Type Severity Reaction Status Date / Time No Known Allergies Allergy Unverified 09/12/23 15:55 General Stated Complaint: Abd Prob LUPIS: 3 Review of Systems All systems reviewed & are unremarkable except as noted in HPI and below Exam Narrative Exam Narrative: GENERAL APPEARANCE: Well-nourished, non-toxic, awake and alert, atraumatic, no acute distress. SKIN: Warm, pink, dry, intact, without rashes/lesions/ulcerations. HEAD: Normocephalic, atraumatic, normal hair distribution for gender/age. EYES: Pupils PERRLA, EOMs intact without nystagmus, normal conjunctiva, no exudates on lids/lashes. ENT: Nares patent, no circumoral cyanosis, no facial swelling NECK: Supple, trachea midline, painless cervical ROM. LUNGS/CHEST: Lungs CTA bilaterally- no rhonchi/rales/wheezes diffusely, non- labored respirations, normal A/P diameter, symmetrical expansion, no chest wall deformity HEART (CV/PV): Regular rate and rhythm without murmur, no peripheral edema, no JVD. ABDOMEN: Soft, non-distended, no guarding, RLQ tenderness, LLQ tenderness, no Mckoy's sign, no CVA tenderness to percussion bilaterally. MSK: Normal ROM, no swelling/deformity to bilateral UEs or LEs, moving all extremities without weakness, no cyanosis, spine midline without tenderness, normal curvature. NEURO: Mental Status AAOx4 - alert to person, place, time, events No facial droop, no forehead involvement. Motor: No focal weakness - strength 5/5 in bilateral UEs and LEs, proximal and distal, symmetric. Sensory: sensation intact to light touch globally. Gait normal: patient ambulated without ataxia into ED room. PSYCH: euthymic, cooperative, pleasant, appropriate speech Course Vital Signs Vital signs: Vital Signs Temperature 37.0 C 09/12/23 15:51 Pulse 97 H 09/12/23 15:51 Respiratory Rate 18 09/12/23 15:51 Blood Pressure 150/88 H 09/12/23 15:51 Pulse Oximetry 96 09/12/23 15:51 Temperature 37.2 C 09/12/23 16:35 Temperature Source Tympanic 09/12/23 16:35 Pulse 93 H 09/12/23 16:35 Respiratory Rate 16 09/12/23 16:35 Blood Pressure 173/90 H 09/12/23 16:35 Pulse Oximetry 96 09/12/23 16:35 Lab/Test Results Lab/Test Results: 09/12/23 16:37 Blood Blood Culture - Pending 09/12/23 16:37 Blood Blood Culture - Pending Medical Decision Making This dictation utilizes [id number] dictation software and may contain unedited grammatical errors. 53 year-old female presents to ED today by POV/ambulating with a chief complaint of lower abdominal pain, mostly R sided, nausea, chills/feverish last night with onset yesterday- called PCP, referred here for question of appendicitis. Quality described as R lower abdominal pain, occasionally across to the left side, no radiation to active vomiting, endorses diarrhea, denies black/bloody stools, endorses nausea, feverish, denies chest pain, denies shortness of breath. Severity is described as severe. Palliating factors include nothing specific helping. Provoking factors include nothing specific. Events leading up to the incident/Associated Symptoms: Patient states has her appendix, history of cholecystectomy. Patients' medical history: Right hydronephrosis, hematuria, obesity, lower extremity edema, diverticulitis. Family and social history: Noncontributory. Pertinent exam findings / vital signs include right lower quadrant tenderness, mild left lower quadrant tenderness with Rovsing's to right lower quadrant, negative Mckoy sign, benign cardiopulmonary exam, afebrile. Differential / pathologies of concern include appendicitis, diverticulitis, SBO unlikely, unlikely biliary colic, possible renal colic, gastroenteritis. Diagnostic studies of: -CBC, CMP, lactate, lipase, magnesium, procalcitonin, UA, CT ABD/pelvis with contrast, blood cx's. -CBC shows leukocytosis of 17 with elevated absolute neutrophils -Lactate and procalcitonin negative-do not suspect sepsis -Magnesium mildly low -CRP mildly elevated at 3.5 -Lipase and LFTs negative -UA shows trace blood -CT shows acute uncomplicated sigmoid diverticulitis without other acute emergent abdominal findings Interventions of: -IVF, Augmentin, ketorlac 15mg IV, 1g IV APAP, 4mg Zofran x2 - hydrocodone to go. ED Course/Assessment/Plan: 53-year-old female presents with some diarrhea and chills, lower abdominal pain, her pain is more focal on the right which can founding with her findings of sigmoid diverticulitis but she did have some tenderness on the left as well, there is no evidence of sepsis or obstructive uropathy or biliary obstruction, the patient is tolerating p.o. intake and was provided with Augmentin to treat her diverticulitis, strict return criteria for worsening signs of infection and fever, nausea or vomiting. Findings not consistent with perforated viscus, appendicitis, SBO, sepsis. Disposition of Acute Diverticulitis. Patient verbalized understanding of the plan and return to ED criteria and engaged in shared decision making. Medical Records Medical records reviewed: Yes I reviewed the patient's medical records. Imaging Data Radiologic Study: Attestation: I personally reviewed and interpreted this imaging study as follows: Imaging: CT Scan Radiologist's impression: Exam: CT Abdomen And Pelvis With Contrast Exam date and time: 09/12/2023 8:48 PM Age: 53 years old Clinical indication: Pain; Other: Rlq tenderness TECHNIQUE: Imaging protocol: Computed tomography of the abdomen and pelvis with contrast. Contrast material: OMNI 350; Contrast volume: 100 ml; Contrast route: INTRAVENOUS (IV); COMPARISON: US PELVIS TRANSVAGINAL 03/27/2023 12:22 PM FINDINGS: Liver: Normal. No mass. Gallbladder and biliary ducts: Gallbladder is surgically absent. No biliary ductal dilation. Pancreas: Normal. No ductal dilation. Spleen: Normal. No splenomegaly. Adrenal glands: Normal. No mass. Kidneys and ureters: 2.7 cm simple cortical cyst upper pole right kidney. Kidneys are otherwise unremarkable. No hydronephrosis. Stomach and bowel: Moderate sigmoid diverticulosis with localized wall thickening and inflammatory change in the mid sigmoid colon compatible with acute diverticulitis. No evidence of diverticular perforation or abscess. Appendix: No evidence of appendicitis. Intraperitoneal space: Unremarkable. No free air. No significant fluid collection. Vasculature: Unremarkable. No abdominal aortic aneurysm. Lymph nodes: Unremarkable. No enlarged lymph nodes. Urinary bladder: Unremarkable as visualized. Reproductive: Intrauterine device appears to be in good position. Uterus and ovaries are unremarkable. Bones/joints: Degenerative changes in the lower spine, most severe at the lumbosacral junction where there is significant narrowing bilateral neural foramina. No vertebral body compression acute fracture. Soft tissues: Unremarkable. IMPRESSION: Uncomplicated sigmoid diverticulitis Lab Data Lab results reviewed: Yes I reviewed the patient's lab results. Labs: 09/12/23 21:45 Blood Blood Culture - Pending 09/12/23 19:04 Blood Blood Culture - Pending Laboratory Tests Range/Units 09/12/23 09/12/23 16:55 18:53 WBC (4.4-10.8) 10^3/uL 17.16 H RBC (3.93-5.22) 10^6/uL 4.47 Hgb (11.2-15.7) g/dL 14.8 Hct (36.0-46.0) % 43.1 MCV (80-95) fL 96 H MCH (27.0-33.0) pg 33.1 H MCHC (32.0-36.0) % 34.3 RDW (11.7-14.6) % 12.5 Plt Count (130-400) 10^3/uL 354 MPV (8.0-11.0) fL 9.4 Immature Gran % % 0.4 Neutrophils % % 79.0 Lymphocytes % % 13.9 Monocytes % % 6.1 Eosinophils % % 0.4 Basophils % % 0.2 Nucleated RBC % (0.0-0.3) % 0.0 Absolute Neutrophils (1.2-6.7) 10^3/uL 13.56 H Absolute Lymphocytes (1.2-3.4) 10^3/uL 2.39 Absolute Monocytes (0.1-0.8) 10^3/uL 1.05 H Absolute Eosinophils (0.0-0.7) 10^3/uL 0.07 Absolute Basophils (0.0-0.2) 10^3/uL 0.03 VBG Lactate (0.6-1.4) mmol/L 1.3 Sodium (136-145) mmol/L 138 Potassium (3.5-5.1) mmol/L 3.5 Chloride (98-107) mmol/L 102 Carbon Dioxide (21.0-32.0) mmol/L 26.5 Anion Gap (3-11) mmol/L 9.5 BUN (7-18) mg/dL 7 Creatinine (0.55-1.02) mg/dL 0.7 Est GFR (CKD-EPI 2020) (mL/min/1.73m2) 103.35 Glucose (74-106) mg/dL 119 H Calcium (8.5-10.1) mg/dL 9.0 Magnesium (1.8-2.4) mg/dL 1.7 L Total Bilirubin (0.2-1.0) mg/dL 0.99 AST (15-37) U/L 26 ALT (14-59) U/L 67 H Alkaline Phosphatase (46-116) U/L 97 C-Reactive Protein (<or=0.5) mg/dL 3.51 H Total Protein (6.4-8.2) g/dL 7.4 Albumin (3.4-5.0) g/dL 3.6 Lipase (16-77) U/L 18 Procalcitonin ng/mL < 0.1 Urine Color (Yellow) Yellow Urine Clarity (Clear) Sl Cloudy Urine pH (5-8) 6.5 Ur Specific [place] (1.005-1.025) 1.020 Urine Protein (Neg-Trace) mg/dL Negative Urine Ketones (Negative) mg/dL Negative Urine Blood (Negative) Trace-lysed H Urine Nitrite (Negative) Negative Urine Bilirubin (Negative) Negative Urine Urobilinogen (Up to 0.2) mg/dL 0.2 Ur Leukocyte Esterase (Negative) Negative Urine RBC (0-2) HPF 0-2 Urine WBC (0-5) HPF 0-2 Ur Epithelial Cells (Negative) HPF Rare Urine Crystals (Negative) HPF Negative Urine Bacteria (Negative) HPF Negative Urine Mucus (Negative) Negative Ur Culture Indicated? No Urine Glucose (Negative) mg/dL Negative Quality:SDOH Health Related Social Needs: No Data to Display PFSH All Active Problems (Updated 09/12/23 @ 22:18 by SENIA Andrade) Acute diverticulitis (Acute) Abdominal cramping (Acute) Urinary frequency (Acute) Hydronephrosis, right (Acute) COVID-19 (Acute) Basal cell carcinoma (Acute) Foot pain, right (Acute) Shoulder pain, left (Acute) Abdominal pain (Acute) Hematuria (Acute) CTS (carpal tunnel syndrome) (Acute) Severe obesity (Acute) HLD (hyperlipidemia) (Acute) LEW (dyspnea on exertion) (Acute) Localized swelling of both lower legs (Acute) Fatigue (Acute) SOB (shortness of breath) (Acute) Stress (Acute) Concussion (Acute) IUD (intrauterine device) in place (Acute) Diverticulitis (Chronic) Medical History Pre-diabetes Hypertension Surgical History History of cholecystectomy Social History Smoking/Tobacco Use Status: Never Smoking risk assessment performed?: Yes Alcohol Intake: current Alcohol Intake frequency: a few times a week Alcohol type: hard liquor Drug use: Occasionally Substance use type: marijuana Do you feel safe at home: Yes Do you feel safe in your relationship?: Yes
[2023-09-12 19:00] LABS: Lactate 1.3 mmol/L (0.6-1.4)
[2023-09-12 19:04] LABS: Abs Immature Grans 0.07 10^3/uL (0.0-0.06); Absolute Eosinophil Count 0.07 10^3/uL (0.0-0.7); Absolute Lymphocyte Count 2.39 10^3/uL (1.2-3.4); Absolute Monocyte Count 1.05 10^3/uL (0.1-0.8); Basophils % 0.2 %; Eosinophils % 0.4 %; HCT 43.1 % (36.0-46.0); HGB 14.8 g/dL (11.2-15.7); Immature Grans % 0.4 %; Lymphocytes % 13.9 %; MCH 33.1 pg (27.0-33.0); MCHC 34.3 % (32.0-36.0); MCV 96 fL (80-95); MPV 9.4 fL (8.0-11.0); Monocytes % 6.1 %; Platelet Count 354 10^3/uL (130-400); RBC 4.47 10^6/uL (3.93-5.22); RDW 12.5 % (11.7-14.6); RDW-SD 44.6 fL; WBC 17.16 10^3/uL (4.4-10.8)
[2023-09-12 19:05] LABS: Absolute Basophil Count 0.03 10^3/uL (0.0-0.2); Absolute Neutrophil Count 13.56 10^3/uL (1.2-6.7)
[2023-09-12] MEDS: Normal Saline 1,000 ML 1000 ML IV (19:05)
[2023-09-12] MEDS: ACETAMINOPHEN 1,000 MG/100 ML BTL 400 MG IVPB (19:05)
[2023-09-12 19:18] LABS: ALT 67 U/L (14-59); AST 26 U/L (15-37); Albumin 3.6 g/dL (3.4-5.0); Alkaline Phosphatase 97 U/L (46-116); Anion Gap 9.5 mmol/L (3-11); BUN 7 mg/dL (7-18); Bilirubin, Total 0.99 mg/dL (0.2-1.0); C-Reactive Protein 3.51 mg/dL (<or=0.5); CO2 26.5 mmol/L (21.0-32.0); CREATININE 0.7 mg/dL (0.55-1.02); Chloride 102 mmol/L (98-107); Estimated GFR 103.35 (mL/min/1.73m2); Glucose 119 mg/dL (74-106); Lipase 18 U/L (16-77); Magnesium 1.7 mg/dL (1.8-2.4); Potassium 3.5 mmol/L (3.5-5.1); Sodium 138 mmol/L (136-145); Total Protein 7.4 g/dL (6.4-8.2)
[2023-09-12 19:19] LABS: Bilirubin Negative (Negative); Blood Trace-lysed (Negative); Clarity Sl Cloudy (Clear); Glucose Negative (Negative); Ketones Negative (Negative); Leukocyte Esterase Negative (Negative); Nitrite Negative (Negative); Urobilinogen 0.2 mg/dL (Up to 0.2); pH 6.5 (5-8)
[2023-09-12] MEDS: Ketorolac 15 MG/ML VIAL IVP (19:23)
[2023-09-12] MEDS: Ondansetron 4 MG/2 ML VIAL IVP (19:24)
[2023-09-12 19:34] LABS: Procalcitonin < 0.1 ng/mL
[2023-09-12] MEDS: LORazepam 2 MG/ML VIAL 0.5 MG IVP (20:17)
[2023-09-12 20:27] LABS: Bacteria Negative HPF (Negative); C & S Indicated? No; Crystals Negative HPF (Negative); Epithelial Cells Rare HPF (Negative); Mucus Negative (Negative); RBC 0-2 HPF (0-2); WBC 0-2 HPF (0-5)
[2023-09-12] MEDS: Normal Saline - Diluent 50 ML VIAL IJ (20:53)
[2023-09-12] MEDS: Omnipaque 350 MG/ML 100 ML BTL IJ (20:54)
--- NOTE | 2023-09-12 21:31 | DI.VRAD_ITS ---
PROCEDURE INFORMATION: Exam: CT Abdomen And Pelvis With Contrast Exam date and time: 09/12/2023 8:48 PM Age: 53 years old Clinical indication: Pain; Other: Rlq tenderness TECHNIQUE: Imaging protocol: Computed tomography of the abdomen and pelvis with contrast. Contrast material: OMNI 350; Contrast volume: 100 ml; Contrast route: INTRAVENOUS (IV); COMPARISON: US PELVIS TRANSVAGINAL 03/27/2023 12:22 PM FINDINGS: Liver: Normal. No mass. Gallbladder and biliary ducts: Gallbladder is surgically absent. No biliary ductal dilation. Pancreas: Normal. No ductal dilation. Spleen: Normal. No splenomegaly. Adrenal glands: Normal. No mass. Kidneys and ureters: 2.7 cm simple cortical cyst upper pole right kidney. Kidneys are otherwise unremarkable. No hydronephrosis. Stomach and bowel: Moderate sigmoid diverticulosis with localized wall thickening and inflammatory change in the mid sigmoid colon compatible with acute diverticulitis. No evidence of diverticular perforation or abscess. Appendix: No evidence of appendicitis. Intraperitoneal space: Unremarkable. No free air. No significant fluid collection. Vasculature: Unremarkable. No abdominal aortic aneurysm. Lymph nodes: Unremarkable. No enlarged lymph nodes. Urinary bladder: Unremarkable as visualized. Reproductive: Intrauterine device appears to be in good position. Uterus and ovaries are unremarkable. Bones/joints: Degenerative changes in the lower spine, most severe at the lumbosacral junction where there is significant narrowing bilateral neural foramina. No vertebral body compression acute fracture. Soft tissues: Unremarkable. IMPRESSION: Uncomplicated sigmoid diverticulitis Dictated and Authenticated by: Robbin Wilson MD. Ordering:RAULITO Allen MD
[2023-09-12] MEDS: Ondansetron O.D.T. 4 MG TABEF, 3 TABS/BTL PO (22:36)
[2023-09-12] MEDS: Amox. 875/Clav. 125, 2 TABS/BTL 1 TAB PO (22:36)
== END 2023-09-12 22:40 | disposition home or self-care (01) ==
PROVIDERS: Emergency Provider Physician Assistant; PCP Family Medicine
DX: R10.31 Right lower quadrant pain (principal); R11.0 Nausea; K57.20 Diverticulitis of large intestine with perforation and abscess without bleeding
CPT/HCPCS: 36415; 80053; 83690; 84145; 87040; 96365; 96375; 99285; 74177; 81003; 81015; 83605; 83735; 85025; 86140; 99283; J0131; J1885; J2060; J2405; J3490

== ENCOUNTER 2023-09-12 21:58 | Outpatient (REF) | payer SELFPAY ==
[2023-09-12 17:24] LABS: Abs Immature Grans 0.05 10^3/uL (0.0-0.06); Absolute Basophil Count 0.06 10^3/uL (0.0-0.2); Absolute Eosinophil Count 0.11 10^3/uL (0.0-0.7); Absolute Lymphocyte Count 2.73 10^3/uL (1.2-3.4); Absolute Monocyte Count 0.84 10^3/uL (0.1-0.8); Absolute Neutrophil Count 12.15 10^3/uL (1.2-6.7); Basophils % 0.4 %; Eosinophils % 0.7 %; HCT 45.1 % (36.0-46.0); Immature Grans % 0.3 %; Lymphocytes % 17.1 %; MCHC 33.3 % (32.0-36.0); MCV 99 fL (80-95); MPV 10.5 fL (8.0-11.0); Monocytes % 5.3 %; Neutrophils % 76.2 %; Platelet Count 371 10^3/uL (130-400); RBC 4.54 10^6/uL (3.93-5.22); RDW 12.6 % (11.7-14.6); RDW-SD 46.3 fL; WBC 15.94 10^3/uL (4.4-10.8)
[2023-09-12 17:51] LABS: ALT 75 U/L (14-59); AST 37 U/L (15-37); Albumin 3.9 g/dL (3.4-5.0); Alkaline Phosphatase 100 U/L (46-116); Anion Gap 7.5 mmol/L (3-11); BUN 9 mg/dL (7-18); Bilirubin, Total 0.74 mg/dL (0.2-1.0); CO2 27.5 mmol/L (21.0-32.0); CREATININE 0.7 mg/dL (0.55-1.02); Calcium 8.9 mg/dL (8.5-10.1); Chloride 103 mmol/L (98-107); Estimated GFR 103.35 (mL/min/1.73m2); Glucose 104 mg/dL (74-106); Lipase 20 U/L (16-77); Potassium 3.7 mmol/L (3.5-5.1); Sodium 138 mmol/L (136-145); Total Protein 7.7 g/dL (6.4-8.2)
== END 2023-09-12 21:59 | disposition home or self-care (01) ==
LOC: NCHCN 21:58
PROVIDERS: Visit Provider Physician Assistant
DX: R10.30 Lower abdominal pain, unspecified (principal); R82.998 Other abnormal findings in urine
CPT/HCPCS: 80053; 83690; 85025; 87086

== ENCOUNTER 2023-12-19 09:04 | Outpatient (REF) | payer SELFPAY | END 2023-12-19 09:05 | disposition home or self-care (01) | LOC: LBN 09:04 | PROVIDERS: PCP Family Medicine; Visit Provider Nurse Practitioner Gerontology | DX: B96.89 Other specified bacterial agents as the cause of diseases classified elsewhere (principal) | CPT/HCPCS: 87086 ==

== ENCOUNTER 2024-04-18 12:40 | Outpatient (REF) | payer OTHER, SELFPAY ==
[2024-04-18 21:15] LABS: HCT 44.4 % (36.0-46.0); HGB 14.9 g/dL (11.2-15.7); MCHC 33.6 % (32.0-36.0); MCV 98 fL (80-95); MPV 11.1 fL (8.0-11.0); Platelet Count 313 10^3/uL (130-400); RBC 4.52 10^6/uL (3.93-5.22); RDW 12.4 % (11.7-14.6); RDW-SD 44.7 fL; WBC 12.53 10^3/uL (4.4-10.8)
[2024-04-18 21:34] LABS: Hemoglobin A1C 6.2 % (<5.7)
[2024-04-18 21:36] LABS: ALT 83 U/L (14-59); AST 42 U/L (15-37); Albumin 3.8 g/dL (3.4-5.0); Alkaline Phosphatase 100 U/L (46-116); Anion Gap 9.1 mmol/L (3-11); BUN 11 mg/dL (7-18); Bilirubin, Total 0.55 mg/dL (0.2-1.0); CO2 24.9 mmol/L (21.0-32.0); CREATININE 0.7 mg/dL (0.55-1.02); Calcium 9.2 mg/dL (8.5-10.1); Calculated LDL 170 mg/dL (<100); Chloride 105 mmol/L (98-107); Cholesterol 252 mg/dL (<200); Estimated GFR 102.71 (mL/min/1.73m2); Glucose 110 mg/dL (74-106); HDL Cholesterol 52 mg/dL (40-60); Potassium 3.8 mmol/L (3.5-5.1); Sodium 139 mmol/L (136-145); TSH (W/Ref FT4) 1.24 uIU/mL (0.36-3.74); Total Protein 7.5 g/dL (6.4-8.2); Triglyceride 153 mg/dL (<150)
== END 2024-04-18 12:41 | disposition home or self-care (01) ==
LOC: NCHCN 12:40
PROVIDERS: PCP Family Medicine; Visit Provider Family Medicine
DX: Z00.00 Encounter for general adult medical examination without abnormal findings (principal); R53.83 Other fatigue; E66.9 Obesity, unspecified; R73.03 Prediabetes
CPT/HCPCS: 80053; 80061; 85027; 83036; 84443

== ENCOUNTER 2024-05-08 10:01 | Outpatient (REF) | payer OTHER, SELFPAY ==
[2024-05-08 16:18] LABS: Ferritin 203 ng/mL (8-252)
[2024-05-08 17:12] LABS: Iron 96 ug/dL (50-170); Total Iron Binding Capacity 321 ug/dL (250-450); Transferrin Sat 30 % (15-50)
[2024-05-09 10:28] LABS: HBs Antibody, Qual Positive (See Note); HBs Antibody, Quant 46.1 mIU/mL (See Note); Hepatitis B Core Antibody Negative (Negative); Hepatitis B surface Ag Negative (Negative); Hepatitis C Ab w Rflx HCV PCR Negative (Negative)
== END 2024-05-08 10:02 | disposition home or self-care (01) ==
LOC: NCHCN 10:01
PROVIDERS: PCP Family Medicine; Visit Provider Family Medicine
DX: R74.01 Elevation of levels of liver transaminase levels (principal)
CPT/HCPCS: 86704; 86706; 86803; 87340; 82728; 83540; 83550

== ENCOUNTER 2024-07-28 16:15 | Outpatient (REF) | payer OTHER, SELFPAY ==
[2024-07-28 15:03] LABS: ALT 44 U/L (14-59); AST 27 U/L (15-37); Alkaline Phosphatase 114 U/L (46-116); Anion Gap 6.4 mmol/L (3-11); BUN 9 mg/dL (7-18); Bilirubin, Total 0.6 mg/dL (0.2-1.0); CO2 29.6 mmol/L (21.0-32.0); CREATININE 0.7 mg/dL (0.55-1.02); Calcium 9.3 mg/dL (8.5-10.1); Chloride 103 mmol/L (98-107); Estimated GFR 102.71 (mL/min/1.73m2); Glucose 115 mg/dL (74-106); Hemoglobin A1C 5.7 % (<5.7); Potassium 4.6 mmol/L (3.5-5.1); Sodium 139 mmol/L (136-145); Total Protein 7.8 g/dL (6.4-8.2)
== END 2024-07-28 16:16 | disposition home or self-care (01) ==
LOC: NCHCN 16:15
PROVIDERS: PCP Family Medicine; Visit Provider Family Medicine
DX: R73.03 Prediabetes (principal); R74.8 Abnormal levels of other serum enzymes
CPT/HCPCS: 80053; 83036

== ENCOUNTER 2025-02-09 18:21 | Outpatient (REF) | payer OTHER, SELFPAY ==
[2025-02-09 19:00] LABS: ALT 26 U/L (10-49); AST 23 U/L (<34); Albumin 4.3 g/dL (3.2-5.0); Alkaline Phosphatase 89 U/L (46-116); Anion Gap 8.6 mmol/L (3-11); BUN 11 mg/dL (9-23); Bilirubin, Total 0.5 mg/dL (0.2-1.2); CO2 24.4 mmol/L (20.0-31.0); Calcium 9.3 mg/dL (8.3-10.6); Chloride 108 mmol/L (98-107); Glucose 103 mg/dL (74-106); Potassium 4.0 mmol/L (3.5-5.1); Sodium 141 mmol/L (136-145); Total Protein 6.9 g/dL (5.7-8.2)
== END 2025-02-09 18:22 | disposition home or self-care (01) ==
LOC: NCHCN 18:21
PROVIDERS: PCP Family Medicine; Visit Provider Family Medicine
DX: R73.03 Prediabetes (principal)
CPT/HCPCS: 80053